=== PATIENT | male | born 2000 ===

== ENCOUNTER 2022-11-02 21:26 | Emergency (ER) | payer OTHER, BC ==
[~2022-11-02] VITALS: Ht 190.5 cm; Wt 97.5 kg
[2022-11-02] MEDS ORDERED: fentaNYL INJECTION 100 MCG/2 ML VIAL IVP ONE (21:30)
[2022-11-02] MEDS ORDERED: proPOfol INJECTION 200 MG/20 ML VIAL IV ONE ×3 (21:30→22:15)
--- NOTE | 2022-11-02 21:33 | ED Upper Extremity ---
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 We were contacted by Dr. Nunez who tried to put the shoulder back in on the sideline however he states it was too much muscle spasm. On arrival the patient complains only of right shoulder pain. He describes it as severe. No other injuries. No paresthesias. All other systems reviewed and negative except documented per HPI. Voice recognition software was used to help create this chart Allergies and Home Medications Allergies Coded Allergies: No Known Drug Allergies (Unverified , 11/02/22) Patient Home Medication List Home Medication List Reviewed: Yes Review of Systems Constitutional: see HPI Past Pnpcahe-Ooficr-Dkbbyh Hx Patient Social History Tobacco Use?: No Use of E-Cig and/or Vaping dev: No Substance use?: No Alcohol Use?: No Physical Exam Vital Signs Vital Signs - First Documented 11/02/22 11/02/22 21:27 21:55 Temp 37.1 Pulse 85 Resp 18 B/P (MAP) 143/94 (110) Pulse Ox 97 O2 Delivery Room Air O2 Flow Rate 2.00 Capillary Refill : Height, Weight, BMI Height: '" Weight: lbs. oz. kg; BMI Method: General Appearance: WD/WN, no apparent distress HEENT: normal ENT inspection, pharynx normal Neck: non-tender, supple Cardiovascular: regular rate, rhythm, no murmur Respiratory: chest non-tender, lungs clear, normal breath sounds Gastrointestinal: normal bowel sounds, non tender, soft Shoulder: soft tissue tenderness (Tenderness palpation about the right shoulder. It does appear to be anterior dislocated. Neurovascular and sensory intact with normal axillary sensation. Good distal pulses.) Elbow/Forearm: normal inspection, non-tender, no evidence of injury Wrist: Yes normal inspection, Yes non-tender, Yes no evidence of injury Hand: normal inspection, non-tender, no evidence of injury Neurologic/Tendon: normal sensation, normal motor functions, normal tendon functions Neurologic/Psychiatric: no motor/sensory deficits, alert, oriented x 3 Skin: normal color, warm/dry Procedures/Interventions Patient Education: Explained Benefits, Explained Risks, Pt. Ack. Understanding Agreement on procedure with pt: Yes Breath Sounds per Auscultation: Clear Heart Sounds per Auscultation: Regular Airway Exam: Mouth opens >2 fingers 5 min Splinting and Joint Reduction : Location: R shoulder Pre-Proc Neuro Vasc Exam: normal Post-Proc Neuro Vasc Exam: normal Joint Reduction Site: shoulder (R) Reduction Attempts: 1 Pre-Procedure NV Exam: Yes post joint reduction film: joint reduced Arm Sling: Large Progress/Results/Core Measures Results/Orders My Orders Orders - ADAM LOYOLA DO Fentanyl Injection (Fentanyl Injection (11/02/22 21:30) Propofol Injection (Propofol Injection) (11/02/22 21:30) Shoulder, Right, 3 Views (11/02/22 21:30) Propofol Injection (Propofol Injection) (11/02/22 21:43) Propofol Injection (Propofol Injection) (11/02/22 22:15) Shoulder, Right, 1 View (11/02/22 ) Medications Given in ED Current Medications Medications Dose Ordered Sig/Selena Route Start Time Stop Time Status Last Admin Dose Admin Fentanyl Citrate 50 mcg ONCE ONCE IVP 11/02/22 21:30 11/02/22 21:31 DC 11/02/22 21:38 50 MCG Propofol 100 mg ONCE ONCE IV 11/02/22 21:30 11/02/22 21:31 DC 11/02/22 21:55 50 MG Propofol 200 mg ONCE ONCE IV 11/02/22 22:15 11/02/22 22:16 DC 11/02/22 21:53 50 MG Vital Signs/I&O 11/02/22 11/02/22 11/02/22 11/02/22 21:27 21:41 21:42 21:43 Temp 37.1 37.1 Pulse 85 84 86 Resp 18 18 22 B/P (MAP) 143/94 (110) 165/101 (122) 163/93 (116) Pulse Ox 97 99 99 O2 Delivery Room Air Room Air Room Air Room Air 11/02/22 11/02/22 11/02/22 11/02/22 21:45 21:54 21:55 22:00 Pulse 80 79 78 Resp 18 22 13 19 B/P (MAP) 158/109 (125) 136/78 (97) 128/80 (96) Pulse Ox 99 93 99 98 O2 Delivery Room Air Room Air Nasal Cannula Room Air O2 Flow Rate 2.00 11/02/22 11/02/22 11/02/22 11/02/22 22:05 22:10 22:15 22:20 Pulse 69 74 64 65 Resp 14 16 17 12 B/P (MAP) 144/77 (99) 144/76 (98) 137/96 (110) 113/91 (98) Pulse Ox 99 98 98 98 O2 Delivery Room Air Room Air Room Air Room Air 11/02/22 11/02/22 11/02/22 22:25 22:30 22:36 Pulse 69 75 75 Resp 18 19 19 B/P (MAP) 118/93 (101) 143/81 (101) 143/81 Pulse Ox 98 98 98 O2 Delivery Room Air Room Air Room Air Departure Communication (Admissions) Right shoulder reduced under procedural sedation without complication. Patient tolerated well. Took a total of 300 mg of propofol. Neurovascular and sensory intact. Discharged with Ortho follow-up. I reviewed both pre and post reduction images. Prereduction image shows anterior dislocation. Postreduction imaging shows adequate reduction with no obvious fractures. Impression Primary Impression: Dislocation of right shoulder joint Qualified Codes: S43.004A - Unspecified dislocation of right shoulder joint, initial encounter Disposition: HOME, SELF-CARE Condition: Stable Departure-Patient Inst. Referrals: NO,LOCAL PHYSICIAN (PCP) Primary Care Physician MARIANNA NUNEZ MD Patient Instructions: Moderate Sedation in Adults (DC), Shoulder Dislocation (DC) Add. Discharge Instructions: Increase your fluids at home and rest. Use ibuprofen and Tylenol as needed for pain. Keep the sling on until cleared by Dr. Nunez. Return to the emergency department for any severe concerns. All discharge instructions reviewed with patient and/or family. Voiced understanding. ADAM LOYOLA DO Nov 02, 2022 21:33
[2022-11-02] MEDS ORDERED: KETAMINE 100 MG/ML 5 ML VIAL ONE (21:47)
--- NOTE | 2022-11-02 21:59 | Diagnostic Imaging Report ---
EXAMINATION: Right shoulder 2 or more views HISTORY: Shoulder dislocation COMPARISON: None available. FINDINGS: There is anterior dislocation of the right shoulder. No acute fracture is seen. IMPRESSION: 1. Anterior dislocation of the right shoulder. Dictated by: Dictated on workstation # [id number]
[2022-11-02 22:36] VITALS: BP 143/81
--- NOTE | 2022-11-03 06:38 | Diagnostic Imaging Report ---
INDICATION: Right shoulder dislocation, followup post reduction. AP view of the right shoulder shows interval reduction of the right shoulder. There is no appreciable fracture. IMPRESSION: Good alignment of the right shoulder following reduction. Dictated by: Dictated on workstation # [id number]
== END 2022-11-02 22:36 | disposition home or self-care (01) ==
LOC: ER 21:30
DX: S43.004A Unspecified dislocation of right shoulder joint, initial encounter (principal); X58.XXXA Exposure to other specified factors, initial encounter
CPT/HCPCS: 23655; 73020; 73030; 93041